=== PATIENT | female | born 1995 | race Caucasian/White ===

== ENCOUNTER 2016-05-18 06:35 | Emergency (ER) | payer OTHER ==
[2016-05-18 06:55] VITALS: BP 133/74
[2016-05-18] MEDS ORDERED: Misoprostol TAB* 200 MCG ONE (07:00)
--- NOTE | 2016-05-18 07:02 | ED ---
Cedric Garner Matthew, scribed for Katherine Ringuel on 05/18/16 at 0656 . GI/ HPI - HPI Summary HPI Summary: A 20 y/o female presents to the ED after giving a home hours ago. The patient did not know she was and went to the bathroom, where she delivered the baby. Associated symptoms include abdominal pain and vaginal bleeding. No PMHx. No FHx. - History of Current Complaint Time Seen by Provider: 05/18/16 06:49 Stated Complaint: HOME Hx Obtained From: Patient Onset/Duration: Started Hours Ago, Atraumatic Timing: Lasting Hours Severity: Moderate Current Severity: None Location of Pain: RLQ, LLQ Pain Characteristics: Cramping Associated Signs and Symptoms: Positive: Abdominal Pain Additional Signs & Symptoms: Positive: Vaginal Bleeding - Allergy/Home Medications Allergies/Adverse Reactions: Allergies Allergy/AdvReac Type Severity Reaction Status Date / Time Azithromycin [From Zithromax] Allergy Intermediate Hives Verified 12/23/15 10:18 PMH/Surg Hx/FS Hx/Imm Hx Previously Healthy: Yes Endocrine/Hematology History: Denies: Hx Diabetes - Surgical History Surgery Procedure, Year, and Place: Tonsilectomy Infectious Disease History: Denies: History Other Infectious Disease - Family History Known Family History: Negative: Other - JOINT LAXITY - Social History Alcohol Use: None Substance Use Type: Reports: None Smoking Status (MU): Never Smoked Tobacco Review of Systems Constitutional: Negative Eyes: Negative ENT: Negative Cardiovascular: Negative Respiratory: Negative Positive: Abdominal Pain - RLQ and LLQ Genitourinary: Other - Vaginal bleeding Musculoskeletal: Negative Skin: Negative Neurological: Negative Psychological: Normal All Other Systems Reviewed And Are Negative: Yes Physical Exam Triage Information Reviewed: Yes Vital Signs On Initial Exam: Initial Vitals Temp Pulse Resp BP Pulse Ox 97.9 F 89 20 133/74 94 05/18/16 06:51 05/18/16 06:51 05/18/16 06:51 05/18/16 06:51 05/18/16 06:51 Vital Signs Reviewed: Yes Appearance: Positive: Well-Appearing, No Pain Distress Skin: Positive: Warm, Skin Color Reflects Adequate Perfusion, Dry Head/Face: Positive: Normal Head/Face Inspection Eyes: Positive: EOMI, ADRIANO ENT: Positive: Normal ENT inspection Neck: Positive: Supple, Nontender Respiratory/Lung Sounds: Positive: Clear to Auscultation, Breath Sounds Present Cardiovascular: Positive: RRR, Pulses are Symmetrical in both Upper and Lower Extremities Abdomen Description: Positive: Soft, Other: - RLQ and LLQ abdominal tenderness Bowel Sounds: Positive: Present Pelvic Exam: Positive: other - mild vignial bleeding Musculoskeletal: Positive: Normal, Strength/ROM Intact Neurological: Positive: Normal, Sensory/Motor Intact, Alert, Oriented to Person Place, Time Psychiatric: Positive: Affect/Mood Appropriate Diagnostics - Vital Signs Vital Signs Temp Pulse Resp BP Pulse Ox 05/18/16 06:51 97.9 F 89 20 133/74 94 - Laboratory Lab Statement: Any lab studies that have been ordered have been reviewed, and results considered in the medical decision making process. GIGU Course/Dx - Diagnoses Provider Diagnoses: Status post delivery at term - Physician Notifications Discussed Care Of Patient With: Dr. 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 Discharge - Discharge Plan Condition: Stable Disposition: OTHER Discharge Disposition Comment: Transfer to L&D Referrals: No Primary Care Phys,NOPCP [Primary Care Provider] - The documentation as recorded by the Cedric mckinley Matthew accurately reflects the service I personally performed and the decisions made by María Elena boyd Emmanuel.
== END 2016-05-18 07:10 ==
LOC: ED 06:35
DX: Z39.0 Encounter for care and examination of mother immediately after delivery (principal)
CPT/HCPCS: 99283; A9270-GY

== ENCOUNTER 2016-05-18 06:58 | Inpatient (IN) | payer OTHER ==
[2016-05-18] MEDS ORDERED: Acetaminophen TAB* 325 MG PO PRN (07:49)
[2016-05-18] MEDS ORDERED: Glycerin ADULT SUPP PR PRN (07:49)
[2016-05-18] MEDS ORDERED: Dibucaine 1% 28.35 GM TUBE PR PRN (07:49)
[2016-05-18] MEDS ORDERED: Witch Hazel PAD* JAR TOPICAL PRN (07:49)
[2016-05-18 08:33] LABS: Hematocrit 34 % (35-47); Hemoglobin 11.1 g/dl (12.0-16.0); Mean Corpuscular HGB Conc 32 g/dl (31-36); Mean Corpuscular Hemoglobin 25 pg (27-31); Mean Corpuscular Volume 78 fL (80-97); Mean Platelet Volume 9 um3 (7.4-10.4); Red Blood Count 4.43 10^6/ul (4.0-5.4); Red Cell Distribution Width 16 % (10.5-15); White Blood Count 22.4 10^3/ul (3.5-10.8)
[2016-05-18 08:34] LABS: Comments Flag Yes
[2016-05-18 08:35] LABS: Add Diff/Slide Review? Slide Review Added
[2016-05-18 09:28] LABS: Manual Entry Verification BM; Rapid HIV INT CONT QC Line Present; Rapid HIV Kit Lot# F209005
[2016-05-18 10:56] LABS: Syphilis Index 0.2 Index
[2016-05-18] MEDS: Docusate CAP* 100 MG PO SCH ×3 (11:32→19:40)
[2016-05-18] MEDS: Simethicone TAB* 80 MG TAB.CHEW PO SCH ×3 (11:32→18:29)
[2016-05-18] MEDS: Ibuprofen TAB* 600 MG PO PRN ×2 (13:34→22:10)
[2016-05-18 17:17] LABS: Benzodiazepine Urine Screen None Detected (None Detect)
[2016-05-19] MEDS ORDERED: Measles, Mumps,Rubella VACC* 0.5 ML/VIAL SUBCUT ONE (07:54)
[2016-05-19] MEDS ORDERED: Ferrous Gluconate TAB* 324 MG TAB PO SCH (09:00)
[2016-05-19] MEDS: Ibuprofen TAB* 600 MG PO PRN (09:19)
[2016-05-19] MEDS: Docusate CAP* 100 MG PO SCH ×3 (09:19→20:56)
[2016-05-19 09:33] LABS: Hematocrit 32 % (35-47); Mean Corpuscular HGB Conc 32 g/dl (31-36); Mean Corpuscular Hemoglobin 25 pg (27-31); Mean Corpuscular Volume 78 fL (80-97); Mean Platelet Volume 9 um3 (7.4-10.4); Red Blood Count 4.03 10^6/ul (4.0-5.4); Red Cell Distribution Width 15 % (10.5-15); White Blood Count 13.9 10^3/ul (3.5-10.8)
[2016-05-19 21:57] VITALS: BP 113/64
[2016-05-20] MEDS: Docusate CAP* 100 MG PO SCH (09:15)
[2016-05-20] MEDS ORDERED: Tetan/Diph/Pertus SYR(Tdap)* 0.5 ML SYR(BOOSTRIX) use SYR IM ONE (12:26)
[2016-05-20] MEDS ORDERED: Measles, Mumps,Rubella VACC* 0.5 ML/VIAL SUBCUT ONE (12:26)
[2016-05-20] MEDS ORDERED: Influenza VAC *QUAD* 2016-17* 0.5 ML SYRINGE IM ONE (14:00)
[2016-05-21] MEDS ORDERED: Prenatal Vitamin TAB PO SCH (09:00)
[2016-05-21 13:54] LABS: Venous/Capillary Venous
== END 2016-05-20 14:10 | disposition home or self-care (01) | DRG 560 ==
LOC: MCHOB 06:58
PROVIDERS: ADMIT Obstetrics & Gynecology; ATTEND Obstetrics & Gynecology
PROC: 0KQM0ZZ Repair Perineum Muscle, Open Approach (ICD-10-PCS; principal; 2016-05-18)
DX: O70.1 Second degree perineal laceration during delivery (principal); Z3A.40 40 weeks gestation of pregnancy
CPT/HCPCS: 36415; 80307; 83036; 83655; 85025; 86592; 86703; 86762; 86850; 86900; 86901; 87340; 87491; 87591; 88307; 90686; 90707; 90715; A9270-GY

== ENCOUNTER 2018-09-09 09:13 | Emergency (ER) | payer OTHER ==
--- OUTSIDE RECORDS SUMMARY | 2018-09-09 09:27 | XMS REPORT | Continuity of Care Document ---
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 Alma Mas PNP-BC, FNP, Ibclc Primary Care Physician Unavailable Payers Date Identification Numbers Payment Provider Subscriber Policy Number: [id number] [employer] Derrick Morris PayID: [id number] [address] [place] [address] Family History Date Family Member(s) Observation Comments Father Diabetes Father Seizure Disorder Paternal Grandmother Diabetes Social History Type Date Description Comments Sex Unknown Lives With Family grandmother and grandfather 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 Use Occasionally consumes alcohol Tobacco Use Start: Unknown Patient denies history of smoking Recreational Drug Use Denies Drug Use Smoking Status Reviewed: 08/12/18 Patient denies history of smoking Allergies, Adverse Reactions, Alerts Active Allergies Reaction Severity Comments Date Azithromycin 06/08/2018 Medications Active Medications SIG Qnty Indications Ordering Date Provider Sertraline HCL 1 by mouth every 30tabs F41.9 Alma Mas, 08/12/2018 50mg day ALEKSANDAR SYED, Tablets Ibclc Mirena (52 MG) Lot Number: [id number] Tanmay, 07/02/2018 [id number] [place], 20mcg/24HR IUD Expiration Date: HAND STRIPER June 2020 Iron 1 tabl by mouth 60tabs Alma Mas, 06/10/2018 325(65Fe) mg twice a day PNP-BC, HAND STRIPER, Tablets Ibclc Vitamin D-1000 2 by mouth every 90tabs Alma Mas, 06/10/2018 Maximum Strength day PNP-BC, HAND STRIPER, Ibclc 1000Unit Tablets Multivitamin 1 tab po daily Unknown History Medications Sertraline HCL 1 by mouth every 45tabs F41.9 Alma Msa, 07/08/2018 - 25mg day for 2 weeks PNP-BC, HAND STRIPER, 08/12/2018 Tablets then increase to Ibclc 2 tabs Metronidazole 1 tab by mouth 14tabs Alma Mas, 07/08/2018 - 500mg twice a day for 7 PNP-BC, HAND STRIPER, 07/15/2018 Tablets days Ibclc Doxycycline 1 by mouth twice 14caps Tanmay, 07/03/2018 - Monohydrate a day x 7 days Wilmar, 07/10/2018 100mg HAND STRIPER Capsules Vital Signs Date Vital Result Comment 08/12/2018 8:56am BP Systolic 120 mmHg BP Diastolic 72 mmHg Body Temperature 97.2 F Heart Rate 87 /min Weight 301.00 lb O2 % BldC Oximetry 98 % 07/14/2018 10:43am BP Systolic 116 mmHg BP Diastolic 76 mmHg Heart Rate 8998 /min Respiratory Rate 17 /min Height 66 inches 5'6" Weight 298.00 lb BMI (Body Mass Index) 48.1 kg/m2 BSA (Body Surface Area) 2.37 m2 [place] body weight in kilograms 59 kg O2 % BldC Oximetry 98 % 07/08/2018 8:25am BP Systolic Sitting Left Arm 112 mmHg BP Diastolic Sitting Left Arm 62 mmHg Body Temperature 97.3 F Heart Rate 96 /min Weight 300.00 lb O2 % BldC Oximetry 97 % 07/02/2018 8:17am BP Systolic Sitting Left Arm 112 mmHg BP Diastolic Sitting Left Arm 70 mmHg Body Temperature 97.8 F Heart Rate 88 /min Height 66.5 inches 5'6.50" Weight 297.00 lb BMI (Body Mass Index) 47.2 kg/m2 BSA (Body Surface Area) 2.38 m2 [place] body weight in kilograms 60 kg Last Menstrual Period [id number] O2 % BldC Oximetry 97 % 06/08/2018 3:31pm BP Systolic Sitting Left Arm 122 mmHg BP Diastolic Sitting Left Arm 70 mmHg Body Temperature 98.3 F Heart Rate 102 /min Height 66.5 inches 5'6.50" Weight 295.00 lb BMI (Body Mass Index) 46.9 kg/m2 BSA (Body Surface Area) 2.37 m2 [place] body weight in kilograms 66 kg O2 % BldC Oximetry 97 % Results Test Date Facility Test Result H/L Range Note Affirm 07/02/[address] [facility] [address] Trichomonas Negative [Negative] 1 Vaginitis Panel [address] [place] [address] [phone] Gardnerella vaginalis POSITIVE Abnormal [Negative] Janelle species Negative [Negative] 2 Chlmaydia/GC/Trichomonas 07/02/2018 [facility] [email or web address] Chlamydia POSITIVE Abnormal Negative PCR [address] trachomatis, [place] [address] PCR [phone] Neisseria gonorrhoeae, PCR NEGATIVE Negative 3 Trichomonas vaginalis PCR NEGATIVE Negative Specimen Type: Genital Urine HCG (Qualitative) 07/02/2018 [facility] Misc Negative Urine Dipstick 07/02/2018 [facility] Inhouse Ua Color yellow Yellow Ua Clarity clear Clear Ua Leuko 15 Orestes/uL High Negative Ua Nitrite negative Negative Ua Urobilinogen 3.5 umol/L High 0.2 - 1.0 E.U./dL Ua Protein negative Negative Ua PH 5.5 Low 6.5-7.5 Ua Blood negative Negative Ua Specific [place] 1.030 1.010-1.030 Ua Ketones negative Negative Ua Bilirubin negative Negative Ua Glucose negative Negative Comprehensive Metabolic 06/09/2018 [facility] Glucose 85 mg/dL N 74-106 [address] [place], [place] [id number] [phone] BUN 12 mg/dL N 7-18 Creatinine 0.7 mg/dL N 0.6-1.3 Glom Filtration Rate, Estimate >60 mL/min >60 If >60 mL/min >60 5 BUN/Creat 17.1 ratio Sodium 139 mmol/L N 136-145 Potassium 3.8 mmol/L N 3.5-5.1 Chloride 108 mmol/L High 98-107 Carbon Dioxide 27 mmol/L N 21-32 Anion Gap 4 mEq/L Low 8-16 Calcium 8.3 mg/dL Low 8.5-10.1 Total Protein 7.1 g/dL N 6.4-8.2 Albumin 3.6 g/dL N 3.4-5.0 Globulin 3.5 g/dL N 1.9-4.3 Alb/Glob 1.0 ratio Bilirubin,Total 0.2 mg/dL N 0.2-1.0 Sgot/Ast 16 U/L N 15-37 SGPT/Alt 22 U/L N 12-78 Alkaline Phosphatase 78 U/L N 45-117 T7/TSH 06/09/2018 [facility] T3 Uptake 33 % N 31-[address] [place] [address] [phone] Thyroxine (T4) 7.9 g/dL N 4.7-13.3 T7 2.61 g/dL Low 5.0-12.0 Thyroid Stim Hormone 3.83 uIU/mL N 0.30-4.20 Thyroid 06/09/2018 [facility] Thyroglobulin < 1.0 0.0-0.[address] Antibody IU/[place] [address] [phone] Thyroid Peroxidase Antibodies 14 IU/mL 0-34 Glycohemoglobin A1c 06/09/2018 [facility] Glycohemoglobin 5.0 % N 4.2-6.[address] (A1c) [place] [address] [phone] eAG 97 mg/dL LDL Cholesterol Profile 06/09/2018 [facility] Cholesterol 135 mg/dL <[address] [place] [address] [phone] Triglycerides 75 mg/dL <150 9 HDL Cholesterol 53 mg/dL >40 10 LDL-Cholesterol 67 mg/dL < 100 11 CBC W/Automated Diff 06/09/2018 [facility] White Blood 9.2 K/uL N 3.1-10.[address] [place] [address] [phone] Red Blood Count 4.89 M/uL N 3.90-5.40 Hemoglobin 10.8 gm/dL Low 11.6-15.8 Hematocrit 35.8 % Low 36.0-46.1 Mean Cell Volume 73.2 fl Low 80.9-99.0 Mean Corpuscular HGB 22.1 pg Low 25.9-32.7 Mean Corpuscular HGB Conc 30.2 g/dL Low 30.8-34.3 Platelet Count 303 K/uL N 155-360 Red Cell Distri Width SD 46.6 fl N 36-47 Red Cell Distri Width %CV 17.7 % High 11.7-14.4 Mean Platelet Volume 10.9 fl N 8.9-12.4 Neut% 56.5 % N 40.4-72.8 Lymph % 36.5 % N 20.0-42.0 [place] % 4.8 % N 4.3-13.2 Eo% 1.6 % N 0.0-6.6 Bas% 0.4 % N 0.0-1.1 Immature Grans 0.2 % N 0.0-5.0 NRBC % 0.0 /100WBC < 10/ 100 WBC Neut# 5.19 K/uL N 1.8-7.0 Lymph # 3.35 K/uL N 1.0-4.0 Highlands # 0.44 K/uL N 0.3-0.9 Eos # 0.15 K/uL N 0.0-0.5 Baso # 0.04 K/uL N 0.0-0.1 Immature Grans Absolute 0.02 K/uL NRBC # 0.00 K/uL Laboratory 06/09/2018 [facility] Vitamin 21.8 Low 30.0-100.0 12 test finding [address] D,25-Hydroxy ng/[place] [address] [phone] Laboratory 06/08/2018 [facility] Inhouse Urine neg test finding Test Urine Dipstick 06/08/2018 [facility] Inhouse Ua Color Yellow Yellow Ua Clarity clear Clear Ua Leuko 15 Orestes/uL High Negative Ua Nitrite negative Negative Ua Urobilinogen 3.5 umol/L High 0.2 - 1.0 E.U./dL Ua Protein negative Negative Ua PH 5.0 Low 6.5-7.5 Ua Blood negative Negative Ua Specific [place] 1.030 1.010-1.030 Ua Ketones negative Negative Ua Bilirubin negative Negative Ua Glucose negative Negative 1 Z30.430 Z30.430 Z01.419 2 Method: BD Affirm VPIII DNA Probe Assay 3 A negative result for either C. trachomatis and/or N. gonorrhoeae does not preclued an infection because results are dependent on adequate specimen collection, absence of inhibitors, and sufficient DNA to be detected. 4 E66.9 Z13.1 Z13.220 Z13.0 F33.1 5 Note: Persistent reduction for 3 months or more in an eGFR <60 mL/min/1.73 m2 defines CKD. Patients with eGFR values >/=60 mL/min/1.73 m2 may also have CKD if evidence of persistent proteinuria is present. The original MDRD equation for estimated GFR is not valid for patients less than 18 years of age. Additional information may be found at www.kdoqi.org. 6 Thyroglobulin Antibody measured by Equigerminal Methodology Performed at: RN - [facility] [address] [id number] Mud Temperer: Shaye Poole MD, Phone: [phone] 7 Elevated levels of HbA1c suggest the need for more aggressive treatment of glycemia. The [place] Diabetes Association recommends that a primary goal of therapy should be a HbA1c of <7% and that physicians should re-evaluate the treatment regimen in patients with HbA1c values consistently >8%. 8 Reference Guidelines*: Desirable: ........... < 200 mg/dL Borderline High: ..... 200-239 mg/dL High: ................ >=240 mg/dL * The National Cholesterol Education Program (NCEP) 9 Reference Guidelines*: Normal: ............. < 150 mg/dL Borderline High: .... 150-199 mg/dL High: ............... 200-499 mg/dL Very High: .......... > 500 mg/dL * Source: National Cholesterol Education Program (NCEP) 10 Reference Guidelines*: Low HDL: ..... < 40 mg/dL Normal: ..... 40-60 mg/dL Desirable: ... > 60 mg/dL *The National Cholesterol Education Program(NCEP) 11 Reference Guidelines*: Optimal:........... <100 mg/dL Near Optimal....... 100-129 mg/dL Borderline High.... 130-159 mg/dL High............... 160-189 mg/dL Very High.......... >=190 mg/dL * Source: National Cholesterol Education Program (NCEP) 12 Vitamin D deficiency has been defined by the [place] of [employer] and an Endocrine Society practice guideline as a level of serum 25-OH vitamin D less than 20 ng/mL (1,2). The Endocrine Society went on to further define vitamin D insufficiency as a level between 21 and 29 ng/mL (2). 1. IOM ([place] of [employer]). 2010. Dietary reference intakes for calcium and D. [place]: The National Academies Press. 2. Jan MF, She [place], Daphney DAO, et al. Evaluation, treatment, and prevention of vitamin D deficiency: an Endocrine Society clinical practice guideline. JCEM. 2010; 96(7):1911-30. Performed at: RN - [facility] [address] [id number] Mud Temperer: Shaye Poole MD, Phone: [phone] Procedures Date Code Description Status 08/12/2018 25479 Brief Emotional/Behav Assessment W/ Scoring Doc Per Completed Standard Inst 07/08/2018 83200 Brief Emotional/Behav Assessment W/ Scoring Doc Per Completed Standard Inst 07/02/2018 65590 Insertion Of Intrauterine Device Completed 06/08/2018 20474 Brief Emotional/Behav Assessment W/ Scoring Doc Per Completed Standard Inst Encounters Type Date Location Provider Dx Diagnosis Office Visit 08/12/2018 [facility] Alma Hardy, F33.1 Major depressive 9:[address] PNP-BC, HAND STRIPER, disorder, Ibclc recurrent, moderate F41.9 Anxiety disorder, unspecified E66.9 Obesity, unspecified Office Visit 07/14/2018 [facility] Z30.431 Encounter for 10:45a Medicine ALEKSANDAR Anderson routine checking RD of intrauterine contracep dev Office Visit 07/08/2018 Alma Jordan, F41.9 Anxiety disorder, 8:30a Medicine Meet PNP-BC, HAND STRIPER, Ibclc unspecified RD F33.1 Major depressive disorder, recurrent, moderate Office Visit 07/02/2018 [facility] Z01.419 Encntr for hide and skin colerer 8:15a Medicine ALEKSANDAR Anderson exam (general) RD (routine) w/o abn findings Z30.430 Encounter for insertion of intrauterine contraceptive device Office Visit 06/08/2018 3:30p [facility] Alma Mas, F41.9 Anxiety disorder, [place] RD MIN-BC, HAND STRIPER, unspecified Ibclc F33.1 Major depressive disorder, recurrent, moderate E66.9 Obesity, unspecified Z13.1 Encounter for screening for diabetes mellitus Z13.220 Encounter for screening for lipoid disorders Z13.0 Encntr screen for dis of the bld/bld-form org/immun mechnsm Z32.02 Encounter for test, result negative Plan of Treatment Future Appointment(s):09/14/2018 9:30 am - Alma Mas, MNI-BC, HAND STRIPER, Ibclc at [facility]
[2018-09-09 09:34] VITALS: BP 117/81
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
== END 2018-09-09 11:05 | disposition home or self-care (01) ==
LOC: UCCORT 09:13
DX: S16.1XXA Strain of muscle, fascia and tendon at neck level, initial encounter (principal); S90.31XA Contusion of right foot, initial encounter; S20.219A Contusion of unspecified front wall of thorax, initial encounter; V89.0XXA Person injured in unspecified motor-vehicle accident, nontraffic, initial encounter; Y92.410 Unspecified street and highway as the place of occurrence of the external cause
CPT/HCPCS: 71046; 72125; 99212; G0463